=== PATIENT | female | born 1970 | race Caucasian/White ===

== ENCOUNTER 2016-11-14 12:01 | Emergency (ER) | payer MEDICARE ==
[~2016-11-14 12:01] MED LIST: AMOXICILLIN500 M1 PO; BUDEPRION XL150 MG PO; CHANTIX0.5 MG PO; CHANTIX1 MG PO; DICLOFENAC PO; ERY-TAB500 MG PO; ERYTHROMYCIN500 MG PO; FERROUS GLUCON324 MG PO; FLEXERIL PO; FLEXERIL10 M1 PO; FLUOXETINE HCL20 M1 PO; IBUPROFEN PO; IBUPROFEN800 MG PO; KEFLEX PO; LEVOTHROID150 MCG PO; LORTAB 5-325 M1 EACH PO; LORTAB 7.5-5001 TAB PO; MEDROL4 MG/DOSE- PO; MOTRIN400 MG PO; OMEPRAZOLE40 M1 PO; ONDANSETRON ODT4 MG PO; PRILOSEC; PROPRANOLOL HCL10 M1; ROBAXIN 750750 M1 PO; SARAFEM20 M1 PO; TYLENOL #3 PO; TYLENOL PM EX-S1 TA4 PO; VEETIDS 500500 M1 PO; WELLBUTRIN PO; ZANAFLEX4 M1 PO; [UNRECOGNIZED DRUG - OTHER]; [UNRECOGNIZED DRUG - OTHER]
== END 2016-11-14 12:05 | disposition home or self-care (01) ==
LOC: SED 12:01
DX: L03.011 Cellulitis of right finger (principal); Z87.891 Personal history of nicotine dependence; Z88.1 Allergy status to other antibiotic agents
CPT/HCPCS: 10060; 87070; 87077; 87186; 87205; 99283

== ENCOUNTER 2016-12-19 09:54 | Emergency (ER) | payer MEDICARE, OTHER ==
[2016-12-19 10:13] LABS: URINE SOURCE CLEAN CATCH
[2016-12-19 10:17] LABS: BASOPHIL% 0.5 % (0-2.5); EOSINOPHIL# 0.4 X10e3 (0-0.7); EOSINOPHIL% 7.2 % (0.0-7.0); HEMATOCRIT 41.1 % (35.0-45.0); HEMOGLOBIN 13.6 gm/dL (12.0-16.0); LYMPHOCYTE# 1.8 X10e3 (1.0-3.5); LYMPHOCYTE% 30.3 % (17.0-45.0); MEAN CELL VOLUME 86.9 FL (83-96); MEAN CORPUSCULAR HEMOGLOBIN 28.6 PG (28-34); MEAN PLATELET VOLUME 7.6 FL (6.5-11.5); MONOCYTE# 0.5 X10e3 (0-1.0); MONOCYTE% 7.9 % (3.0-12.0); NEUTROPHIL# 3.1 X10e3 (1.5-7.1); NEUTROPHIL% 54.1 % (40-75); PLATELET COUNT 221 X10e3 (140-420); RED BLOOD COUNT 4.73 X10e (3.90-5.30); RED CELL DISTRIBUTION WIDTH 13.9 % (11.0-15.5); WHITE BLOOD COUNT 5.8 X10e3 (4.0-10.5)
[2016-12-19 10:18] LABS: DIFF IND NO; URINE APPEARANCE HAZY; URINE BILIRUBIN NEG (NEG); URINE BLOOD 3+ (NEG); URINE COLOR YELLOW; URINE GLUCOSE NEG (NORM); URINE KETONE NEG (NEG); URINE LEUKOCYTE ESTERASE NEG (NEG); URINE NITRATE NEG (NEG); URINE PH 6.5 (5-8); URINE PROTEIN NEG (NEG); URINE SPECIFIC GRAVITY <=1.005 (1.003-1.035); URINE UROBILINOGEN 0.2 MG/DL (NORM)
[2016-12-19 10:24] LABS: MICRO INDICATED? YES
[2016-12-19 10:25] LABS: URINE BACTERIA NEG (NEG); URINE RBC 100-200 /[HPF] (0-2); URINE WBC 0-2 /[HPF] (0-5)
[2016-12-19 10:26] LABS: CULTURE INDICATED? NO; URINE SQUAMOUS EPITHELIAL CELL OCCAS /[HPF]
[2016-12-21 19:58] LABS: CHLAMYDIA TRACH Not Detected (Not Detected); N GONOR Not Detected (Not Detected)
== END 2016-12-19 12:05 | disposition home or self-care (01) ==
LOC: SED 09:54
PROVIDERS: Emergency Medicine
DX: N93.9 Abnormal uterine and vaginal bleeding, unspecified (principal); Z98.890 Other specified postprocedural states; Z88.1 Allergy status to other antibiotic agents; Z79.899 Other long term (current) drug therapy
CPT/HCPCS: 36415; 81003; 84702; 85025; 86850; 86900; 86901; 87210; 87491; 87591; 87808; 87905; 96372; 99284; J2790

== ENCOUNTER 2017-02-18 15:30 | Emergency (ER) | payer MEDICARE | END 2017-02-18 16:17 | disposition left against medical advice (07) | LOC: SED 15:30 | DX: Z53.21 Procedure and treatment not carried out due to patient leaving prior to being seen by health care provider (principal) ==

== ENCOUNTER 2017-04-02 18:55 | Emergency (ER) | payer OTHER ==
[~2017-04-02] VITALS: Ht 157.5 cm; Wt 116.6 kg
[2017-04-02] MEDS ORDERED: IRON160 M1 (19:04)
[2017-04-02] MEDS ORDERED: LEVOTHYROXINE150 MCG (19:04)
== END 2017-04-02 19:37 | disposition home or self-care (01) ==
LOC: SED 18:55
DX: M43.6 Torticollis (principal); K21.9 Gastro-esophageal reflux disease without esophagitis; E03.9 Hypothyroidism, unspecified; Z88.1 Allergy status to other antibiotic agents; Z85.810 Personal history of malignant neoplasm of tongue
CPT/HCPCS: 99283